=== PATIENT | female | born 1940 | race Caucasian/White ===

== ENCOUNTER 2017-07-23 05:36 | Observation (INO) | payer OTHER, MEDICARE ==
[2017-07-23] MEDS ORDERED: LR 1,000 ML IV ONE (06:10)
--- NOTE | 2017-07-23 06:57 | PDANEPAE ---
ANE History of Present Illness 77 year old female presents for sacrocolpopexy (Robotic assisted). ANE Past Medical History - Cardiovascular History Hx Hypertension: No Hx Arrhythmias: No Hx Chest Pain: No Hx Coronary Artery / Peripheral Vascular Disease: No Hx CHF / Valvular Disease: No Hx Palpitations: No - Pulmonary History Hx COPD: No Hx Asthma/Reactive Airway Disease: No Hx Recent Upper Respiratory Infection: No Hx Oxygen in Use at Home: No Hx Sleep Apnea: No Sleep Apnea Screening Result - Last Documented: Negative - Neurologic History Hx Cerebrovascular Accident: No Hx Seizures: No Hx Dementia: No - Endocrine History Hx Diabetes: No Hypothyroid: No Hyperthyroid: No Obesity: no Endocrine History Comment: PREDIABETIC - DIET & EXERCISE - Renal History Hx Renal Disorders: Yes Renal History Comment: BLADDER PROLAPSE - Liver History Hx Hepatic Disorders: Yes Hepatic History Comment: CHOLECYSTECTOMY - Neurological & Psychiatric Hx Hx Neurological and Psychiatric Disorders: No - Cancer History Hx Cancer: No - Congenital Disorder History Hx Congenital Disorders: No - GI History Hx Gastrointestinal Disorders: No - Other Health History Other Health History: STOMACH RASH COMES & GOES - Chronic Pain History Chronic Pain: No - Surgical History Prior Surgeries: EXP LAPAROSCOPY - PAST TUBAL PREG. HYSTERECTOMY. BLADDER REPAIR X2. CHOLECYSTECTOMY. BREAST REDUCTION & ABDOMINOPLASTY ANE Review of Systems Review of systems is: negative Review of Systems: - Exercise capacity Exercise capacity: >=4 METS METS (RN): 4 METS ANE Patient History - Allergies Allergies/Adverse Reactions: codeine Allergy (Verified 06/25/17 10:29) HEADACHE morphine Allergy (Verified 06/25/17 10:29) Swelling/neck,face,throat PROPANOLOL Allergy (Uncoded 03/04/16 12:33) - Home Medications Home medications: home medication list seen and reviewed Home Medications: Cyanocobalamin [Vitamin B12 (*)] 2,500 mcg PO DAILY 06/25/17 [Last Taken ] Estradiol [Estrace Vaginal (*)] 1 gal VG Q3D@21 06/25/17 [Last Taken 07/21/17] Herbals/Supplements -Info Only 1 ea PO DAILY 06/25/17 [Last Taken 2 Weeks Ago ~ 07/09/17] Levoxyl 06/25/17 [Last Taken 07/22/17] - NPO status NPO Since - Liquids (Date): 07/23/17 (Clear liquid) NPO Since - Liquids (Time): 05:00 NPO Since - Solids (Date): 07/22/17 NPO Since - Solids (Time): 01:30 - Anes Hx Anes Hx: slow to awaken from anesthesia - Smoking Hx Smoking Status: Never smoked Marijuana use: No - Alcohol Use Alcohol Use: None - Family Anes Hx Family Anes Hx: neg - N/A Family Hx Anesthesia Complications: NEG ANE Labs/Vital Signs - Vital Signs Vital Signs: reviewed preoperatively; see RN documention for details Blood Pressure: 139/77 Heart Rate: 63 Respiratory Rate: 14 O2 Sat (%): 97 Height: 157.48 cm Weight: 63.503 kg ANE Physical Exam - Airway Neck exam: FROM Mallampati Score: Class 2 Mouth exam: normal dental/mouth exam - Pulmonary Pulmonary: no respiratory distress - Cardiovascular Cardiovascular: regular rate and rhythym - ASA Status ASA Status: II ANE Anesthesia Plan Anesthesia Plan: general endotracheal anesthesia Total IV Anesthesia: No
[2017-07-23] MEDS ORDERED: BUPIVACAINE/EPI 0.5% 30 ML SDV ONE (07:01)
[2017-07-23] MEDS ORDERED: MIDAZOLAM 2 MG/2 ML VIAL IVP ONE (07:11)
--- NOTE | 2017-07-23 07:11 | PDHPUP ---
History & Physical Update H&P update statement: This history and physical update is based on an assessment of the patient which was completed after admission or registration (within 24 hours), but prior to the surgery/procedure. H&P update: H&P reviewed & patient examined, no change in patient's condition since H&P completed
[2017-07-23] MEDS ORDERED: ceFAZolin 2 GM/SWFI 2 GM/20 ML SYR IVP ONE (07:13)
[2017-07-23] MEDS ORDERED: ROCURONIUM 50 MG/5 ML VIAL ONE ×2 (07:15→08:17)
[2017-07-23] MEDS ORDERED: PROPOFOL 200 MG/20 ML VIAL ONE (07:15)
[2017-07-23] MEDS ORDERED: fentaNYL 100 MCG/2 ML INJ ONE (07:15)
[2017-07-23] MEDS ORDERED: LIDOCAINE 2% 5 ML SDV ONE (07:15)
[2017-07-23] MEDS ORDERED: ceFAZolin 2 GM/SWFI 20 ML SYR IVP ONE (07:16)
[2017-07-23] MEDS ORDERED: MIDAZOLAM 2 MG/2 ML VIAL ONE (07:16)
[2017-07-23] MEDS ORDERED: PHENYLEPHRINE HCL 100 MCG/ML SYR ONE (07:42)
[2017-07-23] MEDS ORDERED: ONDANSETRON 4 MG/2 ML VIAL ONE (07:44)
[2017-07-23] MEDS ORDERED: DEXAMETHASONE 4 MG/ML VIAL ONE (07:44)
[2017-07-23] MEDS ORDERED: HYDROCODONE/APAP 5/325 TAB PO PRN ×2 (08:14→10:14)
[2017-07-23] MEDS ORDERED: NALOXONE HCL 0.4 MG/ML INJ IVP PRN (08:14)
[2017-07-23] MEDS ORDERED: ONDANSETRON 4 MG/2 ML VIAL IVP PRN ×2 (08:14→10:14)
[2017-07-23] MEDS ORDERED: PHENYLEPHRINE HCL 100 MCG/ML SYR IVP PRN (08:14)
[2017-07-23] MEDS ORDERED: HYDROmorphONE/DILAUDID 2 MG/ML INJ IVP PRN ×2 (08:14→10:14)
[2017-07-23] MEDS ORDERED: fentaNYL 100 MCG/2 ML INJ IVP PRN (08:14)
[2017-07-23] MEDS ORDERED: LR 500 ML IV PRN (08:14)
[2017-07-23] MEDS ORDERED: epHEDrine SULFATE 10 MG/ML SYR IVP PRN (08:14)
[2017-07-23] MEDS ORDERED: SUGAMMADEX SODIUM 200 MG/2 ML VIAL IVP ONE (09:15)
[2017-07-23] MEDS ORDERED: KETOROLAC 30 MG/1 ML SDV ONE (09:36)
[2017-07-23] MEDS ORDERED: PROMETHAZINE HCL 25 MG/ML INJ IVP PRN (10:14)
--- NOTE | 2017-07-23 10:14 | POSTOPPROG ---
Post Op Note Date of Operation: 07/23/17 Surgeon: Dimitrios Wells Commercial Glazier: Salma Iniguez Anesthesia: GET(General Endotracheal) Pre-op Diagnosis: vaginal prolapse Post-op Diagnosis: same Procedure: robotic sacrocolpopexy, BSO, TOT sling, cysto Findings: ureters function at end of case Inf/Abcess present in the surg proc area at time of surgery?: No EBL: Minimal Complications: None
[2017-07-23] MEDS ORDERED: LR 1,000 ML IV SCH (10:30)
[2017-07-23] MEDS ORDERED: HYDROmorphONE/DILAUDID 2 MG/ML INJ ONE (10:43)
--- NOTE | 2017-07-23 14:01 | POSTANESTH ---
Post Anesthetic Evaluation Cardiovascular Status: Normal, Stable, Similar to Pre-Op Cond Respiratory Status: Normal, Stable, Similar to Pre-op Cond. Level of Consciousness/Mental Status: Can Participate in Eval, Alert and Oriented Pain Control: Adequate, Prn Tx Ordered Nausea/Vomiting Control: Adequate, Prn Tx Ordered Complications Possibly Related to Anesthesia: None Noted
--- NOTE | 2017-07-23 15:15 | GOP ---
[f rep st] OPERATIVE REPORT DATE OF OPERATION: 07/23/2017 SURGEON: Dimitrios Wells MD DISPATCHER SERVICE: Salma Iniguez CFA. ANESTHESIA: General. PREOPERATIVE DIAGNOSIS: 1. Complete vaginal prolapse. 2. Stress urinary incontinence. POSTOPERATIVE DIAGNOSIS: 1. Complete vaginal prolapse. 2. Stress urinary incontinence. 3. Pelvic adhesions. 4. Right ovarian cyst. PROCEDURE PERFORMED: 1. Robotic-assisted laparoscopic sacrocolpopexy with mesh. 2. Repair of cystocele and rectocele. 3. Left ureterolysis. 4. Bilateral salpingo-oophorectomy. 5. Transobturator sling. 6. Perineorrhaphy. 7. Cystoscopy. FINDINGS: SPECIMENS: Bilateral tubes and ovaries. ESTIMATED BLOOD LOSS: Scant. DESCRIPTION OF PROCEDURE: Patient was taken to the operating room. She was identified. General ane sthesia was administered and found to be adequate. She was placed in the lithotomy position and prep ared and draped in normal sterile fashion. A Reynolds catheter was placed in her bladder. A 1 cm infraumbilical incision was made with a scalpel. The Veress needle with the CO2 gas flowing w as advanced into the peritoneal cavity. The abdomen was then insufflated with carbon dioxide gas. T he 12 mm trocar followed by the laparoscope were then inserted. The upper abdomen was unremarkable. She did have fairly significant adhesions in the pelvis distorting the anatomy. Two lateral ports w ere placed on either side under direct visualization. She then was placed in Trendelenburg position, and the da Jake robot docked on the left side. The instruments were then brought into the abdomina l cavity under direct visualization. The bowel adhesions were then taken down sharply. The patient was noted to have an ovarian cyst on t he right and possibly one on the left. As a result, a bilateral salpingo-oophorectomy was performed. The infundibulopelvic vessels were cauterized and transected well anterior to the ureters. The spe cimens were then sent to Pathology. A stent was placed in the vagina. Given the adhesions, a left u reterolysis was required to safely perform the surgery without risk of injuring the ureter. The randal toneum at the pelvic brim was incised. The ureter was gently dissected free and lateralized off the overlying peritoneum down to near the bladder. Once this was accomplished, the bladder was gently di ssected off the anterior vaginal wall down to the level of bladder neck. The rectovaginal space was then entered, and the rectum dissected off the posterior vaginal wall down to the level of the perine al body. Measurements were then obtained, and the mesh trimmed to size. The peritoneum over the sac ral promontory was incised to clear the fat pad off the anterior longitudinal ligament. The mesh was brought into the abdominal cavity. Three sutures of 4-0 Lakes[place]-Ortiz were used to attach the distal pos terior mesh to the perineal body. Two additional rows of Lakeside-Ortiz sutures were placed posteriorly. Three rows were placed anteriorly to suture the mesh down to the bladder neck and laterally to the pa ravaginal tissue. The tension on the sacral arm of the mesh was adjusted to resolve the cystocele an d rectocele without undue tension on the vagina. Two sutures of 2-0 [place]-Ortiz were used to attach the sacral arm of the mesh to the anterior longitudinal ligament below the intervertebral disk space. T he peritoneum was then closed over the entire mesh. The robot was then undocked. The fascia was baldomero sed with 0 Vicryl, skin with 4-0 Monocryl, and surgical adhesive. A midurethral incision was then made with a scalpel. Tunnels were created bilaterally up to the obtu rator internus muscles. Skin incisions were made over the obturator notches. The Halo trocar was pl aced through the left skin incision, redirected around the ischial pubic rami and out through the vag inal incision using a vaginal finger as a guide. The lateral sulci were examined, and no evidence of vaginal injury had occurred. The exact same procedure was performed on the patient's right side. T he sling was then attached to the trocars and removed along the same course. The sling was then adju sted to allow a small midurethral gap. The vaginal epithelium was closed with 2-0 Vicryl, skin with 4-0 Monocryl. Cystoscopy was then performed. Both ureters had vigorous jets of urine. There was no evidence of me sh nor suture within the bladder nor the urethra. No obvious pathology was seen. A transverse incision was then made along the perineal body. The posterior vaginal epithelium was un dermined with the Metzenbaum scissors and incised sagittally. The epithelium was then gently dissect ed off the underlying rectovaginal connective tissue. The connective tissue was plicated with interr upted sutures of 0 Vicryl. The bulbous spongiosis and transverse perineal muscles were then plicated with 0 Vicryl. The excess epithelium was then trimmed and closed with a running 2-0 Vicryl suture. Vaginal packing was then placed. Anesthesia was reversed, and patient taken to the PACU awake, in s table condition. COMPLICATIONS: None. DISPOSITION: Patient stable to PACU. /[id number]/MODL
[2017-07-23] MEDS: KETOROLAC 15 MG/1 ML SDV IVP SCH ×2 (19:23→19:24)
[2017-07-23] MEDS: SIMETHICONE 80 MG TAB CHEW PO SCH ×3 (19:25→22:16)
[2017-07-23] MEDS: DOCUSATE SODIUM 100 MG CAP PO SCH (20:55)
[2017-07-24] MEDS: KETOROLAC 15 MG/1 ML SDV IVP SCH ×2 (01:05→06:44)
[2017-07-24] MEDS: SIMETHICONE 80 MG TAB CHEW PO SCH ×2 (08:40→17:38)
[2017-07-24] MEDS ORDERED: KETOROLAC 15 MG/1 ML SDV IVP ONE ×2 (08:45→15:00)
[2017-07-24] MEDS: DOCUSATE SODIUM 100 MG CAP PO SCH (10:35)
[2017-07-24 17:41] VITALS: BP 120/66; PULSE 66; RESP 16; TEMP 98.1; O2SAT 94
--- NOTE | 2017-07-24 20:05 | GDS ---
[f rep st] DISCHARGE SUMMARY DISCHARGE DIAGNOSES: 1. Vaginal prolapse. 2. Stress urinary incontinence. PROCEDURES: 1. Robotic-assisted laparoscopic sacral colpopexy with mesh. 2. Repair of cystocele and rectocele. 3. Left ureterolysis. 4. Bilateral salpingo-oophorectomy. 5. Transobturator sling. 6. Perineorrhaphy. 7. Cystoscopy. [facility]: The patient suffered from vaginal prolapse and stress urinary incontinence. She wa s taken to the operating room on 07/23/2016, where she underwent the above-mentioned procedures witho ut complications. Her postoperative course was uneventful. Discharged home on postoperative day #1 in good condition. Medications included Gaffney and ibuprofen for pain. She is to follow up in the office. /[id number]/MODL
== END 2017-07-24 20:25 | disposition home or self-care (01) ==
LOC: F3E 05:36 → FOB 11:00
PROVIDERS: ADMIT Obstetrics & Gynecology; ATTEND Obstetrics & Gynecology
DX: N99.3 Prolapse of vaginal vault after hysterectomy (principal); N39.3 Stress incontinence (female) (male); N81.11 Cystocele, midline; N81.6 Rectocele; N73.6 Female pelvic peritoneal adhesions (postinfective); N83.201 Unspecified ovarian cyst, right side; E03.9 Hypothyroidism, unspecified; Z90.710 Acquired absence of both cervix and uterus
CPT/HCPCS: 57250; 57288; 57425; 58661; 58662; C1763; C1771; J0690; J1100; J1170; J1885; J2250; J2370; J2405; J2704; J3010

== ENCOUNTER 2017-08-13 14:25 | Inpatient (IN) | payer OTHER, MEDICARE ==
[2017-08-13] MEDS ORDERED: ONDANSETRON 4 MG/2 ML VIAL IVP ONE (15:07)
[2017-08-13] MEDS ORDERED: HYDROmorphONE/DILAUDID 2 MG/ML INJ IVP ONE (15:07)
[2017-08-13] MEDS ORDERED: NS 1,900 ML IV ONE (15:07)
--- NOTE | 2017-08-13 15:09 | EDPHY ---
H & P Stated Complaint: FEVER, N,V HAD SURGERY ON 07/13/17 Time Seen by Provider: 08/13/17 14:57 HPI/ROS: CHIEF COMPLAINT: Fever, abdominal pain HISTORY OF PRESENT ILLNESS: Patient is a 77-year-old female with a history of cholecystectomy, appendectomy and hysterectomy who underwent surgery for vaginal prolapse and stress incontinence [address] Wells. She had robotic assisted laparoscopic sacral colpopexy with mesh and repair of cystocele and rectocele, bilateral oophorectomy and bladder sling. She states that over the last 3 days she has developed a high fever and abdominal pain and vomiting. No diarrhea. Mild vaginal spotting but she was told to expect this. She also at that she had urinary tract infection 2 days ago and had dysuria and frequency. She took Pyridium without significant improvement. REVIEW OF SYSTEMS: Constitutional: denies: chills, fever, recent illness, recent injury EENTM: denies: blurred vision, double vision, nose congestion Respiratory: denies: cough, shortness of breath Cardiac: denies: chest pain, irregular heart rate, lightheadedness, palpitations Gastrointestinal/Abdominal: See HPI Genitourinary: See HPI Musculoskeletal: denies: joint pain, muscle pain Skin: denies: lesions, rash, jaundice, bruising Neurological: denies: headache, numbness, paresthesia, tingling, dizziness, weakness Hematologic/Lymphatic: denies: blood clots, easy bleeding, easy bruising Immunologic/allergic: denies: HIV/AIDS, transplant EXAM: GENERAL: Well-appearing, well-nourished and in no acute distress. HEAD: Atraumatic, normocephalic. EYES: Pupils equal round and reactive to light, extraocular movements intact, sclera anicteric, conjunctiva are normal. ENT: TMs normal, nares patent, oropharynx clear without exudates. Moist mucous membranes. NECK: Normal range of motion, supple without lymphadenopathy or JVD. LUNGS: Breath sounds clear to auscultation bilaterally and equal. No wheezes rales or rhonchi. HEART: Regular rate and rhythm without murmurs, rubs or gallops. ABDOMEN: Soft, very slight tenderness predominantly on the right side well healing wounds, normoactive bowel sounds. No guarding, no rebound. No masses appreciated. BACK: No CVA tenderness, no spinal tenderness, step-offs or deformities EXTREMITIES: Normal range of motion, no pitting or edema. No clubbing or cyanosis. NEUROLOGICAL: Cranial nerves II through XII grossly intact. Normal speech, normal gait. 5/5 strength, normal movement in all extremities, normal sensation PSYCH: Normal mood, normal affect. SKIN: Warm, dry, normal turgor, no visible rashes or lesions. Source: Patient Exam Limitations: No limitations - Personal History Current Tetanus/Diphtheria Vaccine: Yes Current Tetanus Diphtheria and Acellular Pertussis (TDAP): Yes - Medical/Surgical History Hx Asthma: No Hx Chronic Respiratory Disease: No Hx Diabetes: No Hx Cardiac Disease: No Hx Renal Disease: No Hx Cirrhosis: No Hx Alcoholism: No Hx HIV/AIDS: No Hx Splenectomy or Spleen Trauma: No Other PMH: APPY/CHOLY/HYSTERECTOMY/HYPOTHYROID. BREAST REDUCTION. TUBAL . Vaginal sling, rectocele and cystocele repair - Family History Significant Family History: No pertinent family hx - Social History Smoking Status: Never smoked Alcohol Use: Sober Drug Use: None Constitutional: Initial Vital Signs Temperature (C) 38.6 C H 08/13/17 14:28 Heart Rate 118 H 08/13/17 14:28 Respiratory Rate 16 08/13/17 14:28 Blood Pressure 137/76 H 08/13/17 14:28 O2 Sat (%) 92 08/13/17 14:28 O2 Delivery Mode Nasal Cannula O2 (L/minute) 2 Allergies/Adverse Reactions: morphine Allergy (Unknown, Verified 08/13/17 14:34) Swelling/neck,face,throat codeine Allergy (Verified 08/13/17 14:34) HEADACHE propranolol Allergy (Verified 08/13/17 14:34) Home Medications: Medication Instructions Recorded Cyanocobalamin [Vitamin B12 (*)] 2,500 mcg PO DAILY 06/25/17 Levothyroxine [Synthroid 50 mcg 50 mcg PO DAILY06 06/25/17 (*)] cefTRIAXone 1 GM/DEXTROSE 1 gm IV DAILY bag 08/15/17 [Rocephin 1 gm (Premix)] Medical Decision Making - Diagnostics Imaging: Discussed imaging studies w/ bingo caller Radiologist ED Course/Re-evaluation: The patient was given Benadryl and Solu-Medrol prior to CT because she has an unknown contrast allergy. 6:30 p.m. we discussed the lab results. The patient has UTI and probably early pyelo considering her fever. She is sepsis but not severe sepsis. I spoke with Dr. Merida who will admit the medical service. She has been started on Rocephin. Differential Diagnosis: Partial list of the Differential diagnosis considered include but were not limited to; UTI, pyelonephritis, intra-abdominal abscess and although unlikely based on the history and physical exam, I also considered hemorrhage, obstruction, perforation. Critical Care Time: Critical care time spent by me, Dr. Holly exclusive with this patient was 35 minutes, exclusive of the PA time exclusive of procedures. The organ system that was at risk was renal and I gave antibiotics, assessment, admission to prevent worsening of the patient's condition - Data Points Laboratory Results: Laboratory Results 08/13/17 15:30 08/13/17 15:30 Microbiology Results: MICROBIOLOGY 08/13/17 15:05 Blood Blood Culture - Preliminary Escherichia Coli 08/13/17 15:10 Blood Blood Culture - Preliminary Escherichia Coli 08/13/17 15:10 Blood Blood Panel (PCR) - Final Escherichia Coli 08/13/17 15:30 Unspecified Urine Culture - Final Escherichia Coli Two Crapo Types Medications Given: Discontinued Medications Acetaminophen (Tylenol) 650 mg PO Q4HRS PRN PRN Reason: Pain, Mild/Fever, Can Take PO Stop: 02/09/18 18:38 Last Admin: 08/14/17 05:18 Dose: 650 mg Diphenhydramine HCl (Benadryl Injection) 50 mg IVP EDNOW ONE Stop: 08/13/17 16:14 Last Admin: 08/13/17 16:18 Dose: 50 mg Enoxaparin Sodium (Lovenox) 40 mg SC DAILY [facility] Stop: 02/10/18 08:59 Last Admin: 08/15/17 09:52 Dose: 40 mg Hydromorphone HCl (Dilaudid) 0.5 mg IVP EDNOW ONE Stop: 08/13/17 15:08 Last Admin: 08/13/17 15:43 Dose: 0.5 mg Sodium Chloride (Ns) 1,900 mls @ 3,800 mls/hr 30 ml/kg infuse over 30 min ( 1900 ml) IV EDNOW ONE PRN Reason: Protocol Stop: 08/13/17 15:36 Last Admin: 08/13/17 15:44 Dose: 1,900 mls Ceftriaxone Sodium/Dextrose (Rocephin 1 Gm (Premix)) 50 mls @ 100 mls/hr IV EDNOW ONE Stop: 08/13/17 18:44 Last Admin: 08/13/17 18:00 Dose: 50 mls Sodium Chloride (Ns) 1,000 mls @ 75 mls/hr IV CONT MIKE Stop: 02/09/18 18:44 Last Admin: 08/15/17 01:20 Dose: 1,000 mls Ceftriaxone Sodium/Dextrose (Rocephin 1 Gm (Premix)) 50 mls @ 100 mls/hr IV DAILY MIKE Stop: 09/13/17 08:59 Last Admin: 08/15/17 09:47 Dose: 50 mls Levothyroxine Sodium (Synthroid) 50 mcg PO DAILY06 MIKE Stop: 02/10/18 05:59 Last Admin: 08/15/17 05:29 Dose: 50 mcg Methylprednisolone Sodium Succinate (Solu-Medrol) 125 mg IVP EDNOW ONE Stop: 08/13/17 16:14 Last Admin: 08/13/17 16:18 Dose: 125 mg Ondansetron HCl (Zofran) 4 mg IVP EDNOW ONE Stop: 08/13/17 15:08 Last Admin: 08/13/17 15:43 Dose: 4 mg Vitamin B Complex (Vitamin B12) 2,500 mcg PO DAILY MIKE Stop: 02/10/18 08:59 Last Admin: 08/15/17 09:52 Dose: Not Given Departure - Departure Disposition: [facility] Inpatient Acute Clinical Impression: Pyelonephritis, acute Sepsis Qualifiers: Sepsis type: sepsis due to unspecified organism Qualified Code(s): A41.9 - Sepsis, unspecified organism Condition: Fair
[2017-08-13 15:40] LABS: PLATELET COUNT 258 10^3/uL (150-400)
[2017-08-13 15:50] LABS: INR 1.02 (0.83-1.16); PROTIME(PATIENT) 13.6 SEC (12.0-15.0)
[2017-08-13] MEDS ORDERED: IOPAMIDOL (ISOVUE-300) 100 ML BTL ONE (16:07)
[2017-08-13] MEDS ORDERED: methylPREDNISolone SOD SUCC 125 MG/2 ML VIAL IVP ONE (16:13)
[2017-08-13] MEDS ORDERED: cefTRIAXone 1 GM in STERILE WATER INJ 10 ML IV ONE (17:50)
[2017-08-13] MEDS ORDERED: cefTRIAXone 1 GM/DEXTROSE 1 GM/50 ML BAG IV ONE (18:00)
[2017-08-13] MEDS ORDERED: ONDANSETRON 4 MG/2 ML VIAL IVP PRN (18:39)
[2017-08-13] MEDS ORDERED: ACETAMINOPHEN 325 MG TAB PO PRN (18:39)
[2017-08-13] MEDS ORDERED: ONDANSETRON DISINTEGRATING 4 MG TAB PO PRN (18:39)
--- NOTE | 2017-08-13 18:45 | PDGENHP ---
History and Physical - Chief Complaint Fever - History of Present Illness This is a 77-year-old female with a history of cholecystectomy, appendectomy and hysterectomy who underwent surgery for vaginal prolapse and stress incontinence [address] Wells. She had robotic assisted laparoscopic sacral colpopexy with mesh and repair of cystocele and rectocele, bilateral oophorectomy and bladder sling. She states that over the last 3 days she has developed a high fever and abdominal pain and vomiting. No diarrhea. Mild vaginal spotting but she was told to expect this. She started having urinary sx's 2 days ago and she took Pyridium without significant improvement. Today she presents with fever, tachycardia, malaise and abd discomfort. In the E.D., she was found to have tachycardia, normal BP, and fever. She met Sepsis criteria and was started on Rocephin and IVF hydration. she does not have any cp, SOB, palpitations, leg swelling, SOB, CP, N/v/D. She does no complain of back pain PMHx and Surgical Hx: Hypothyrodisim, APPY/CHOLY/HYSTERECTOMY/HYPOTHYROID. BREAST REDUCTION. TUBAL . Vaginal sling, rectocele and cystocele repair SocHx: no Tobacco or Illicits FmHx: non contributory Data/Labs -CT abd/pelvis: c/w inflammatory thickening of right ureter and bladder c/w UTI -WBC: 14.73 Lactic acid: 1.3 Urine: +nitrate, LE, WBC History Information - Allergies/Home Medication List Allergies/Adverse Reactions: morphine Allergy (Unknown, Verified 08/13/17 14:34) Swelling/neck,face,throat codeine Allergy (Verified 08/13/17 14:34) HEADACHE propranolol Allergy (Verified 08/13/17 14:34) Home Medications: Cyanocobalamin [Vitamin B12 (*)] 2,500 mcg PO DAILY 06/25/17 [Last Taken ] Levothyroxine [Synthroid 50 mcg (*)] 50 mcg PO DAILY06 06/25/17 [Last Taken ] I have personally reviewed and updated: medical history, social history - Social History Smoking Status: Never smoked Alcohol Use: Sober Drug Use: None Review of Systems Review of Systems: ROS: 10pt was reviewed & negative except for what was stated in HPI & below Physical Exam Physical Exam: Temp Pulse Resp BP Pulse Ox 37.3 C 78 16 125/68 H 97 08/13/17 16:00 08/13/17 16:00 08/13/17 16:00 08/13/17 16:00 08/13/17 16:00 Constitutional: no apparent distress, appears nourished Eyes: PERRL, EOMI Ears, Nose, Mouth, Throat: dry mucous membranes Cardiovascular: regular rate and rhythym, edema Respiratory: no respiratory distress, no rales or rhonchi, clear to auscultation Gastrointestinal: normoactive bowel sounds, soft, non-tender abdomen Genitourinary: no bladder fullness Skin: warm Musculoskeletal: other (no cva tenderness), No muscular tenderness Neurologic: AAOx3 Psychiatric: interacting appropriately, not anxious, not encephalopathic Lymph, Heme, Immunologic: No petechiae Lab Data & Imaging Review 08/13/17 15:30 08/13/17 15:30 WBC 14.73 10^3/uL (3.80-9.50) H 08/13/17 15:30 RBC 4.19 10^6/uL (4.18-5.33) 08/13/17 15:30 Hgb 13.0 g/dL (12.6-16.3) 08/13/17 15:30 Hct 38.8 % (38.0-47.0) 08/13/17 15:30 MCV 92.6 fL (81.5-99.8) 08/13/17 15:30 MCH 31.0 pg (27.9-34.1) 08/13/17 15:30 MCHC 33.5 g/dL (32.4-36.7) 08/13/17 15:30 RDW 13.5 % (11.5-15.2) 08/13/17 15:30 Plt Count 258 10^3/uL (150-400) 08/13/17 15:30 MPV 10.4 fL (8.7-11.7) 08/13/17 15:30 Neut % (Auto) 82.0 % (39.3-74.2) H 08/13/17 15:30 Lymph % (Auto) 7.1 % (15.0-45.0) L 08/13/17 15:30 [place] % (Auto) 9.2 % (4.5-13.0) 08/13/17 15:30 Eos % (Auto) 0.3 % (0.6-7.6) L 08/13/17 15:30 Baso % (Auto) 0.7 % (0.3-1.7) 08/13/17 15:30 Nucleat RBC Rel Count 0.0 % (0.0-0.2) 08/13/17 15:30 Absolute Neuts (auto) 12.07 10^3/uL (1.70-6.50) H 08/13/17 15:30 Absolute Lymphs (auto) 1.04 10^3/uL (1.00-3.00) 08/13/17 15:30 Absolute Monos (auto) 1.36 10^3/uL (0.30-0.80) H 08/13/17 15:30 Absolute Eos (auto) 0.04 10^3/uL (0.03-0.40) 08/13/17 15:30 Absolute Basos (auto) 0.11 10^3/uL (0.02-0.10) H 08/13/17 15:30 Absolute Nucleated RBC 0.00 10^3/uL (0-0.01) 08/13/17 15:30 Immature Gran % 0.7 % (0.0-1.1) 08/13/17 15:30 Immature Gran # 0.11 10^3/uL (0.00-0.10) H 08/13/17 15:30 PT 13.6 SEC (12.0-15.0) 08/13/17 15:30 INR 1.02 (0.83-1.16) 08/13/17 15:30 APTT 27.9 SEC (23.0-38.0) 08/13/17 15:30 VBG Lactic Acid 1.3 mmol/L (0.7-2.1) 08/13/17 15:30 Sodium 138 mEq/L (135-145) 08/13/17 15:30 Potassium 4.0 mEq/L (3.5-5.2) 08/13/17 15:30 Chloride 103 mEq/L (97-110) 08/13/17 15:30 Carbon Dioxide 23 mEq/l (22-31) 08/13/17 15:30 Anion Gap 12 mEq/L (8-16) 08/13/17 15:30 BUN 15 mg/dL (7-23) 08/13/17 15:30 Creatinine 0.8 mg/dL (0.6-1.0) 08/13/17 15:30 Estimated GFR > 60 08/13/17 15:30 Glucose 117 mg/dL (70-100) H 08/13/17 15:30 Calcium 9.0 mg/dL (8.5-10.4) 08/13/17 15:30 Total Bilirubin 1.4 mg/dL (0.1-1.4) 08/13/17 15:30 Conjugated Bilirubin 0.6 mg/dL (0.0-0.5) H 08/13/17 15:30 Unconjugated Bilirubin 0.8 mg/dL (0.0-1.1) 08/13/17 15:30 AST 73 IU/L (14-46) H 08/13/17 15:30 ALT 66 IU/L (9-52) H 08/13/17 15:30 Alkaline Phosphatase 81 IU/L (38-126) 08/13/17 15:30 Total Protein 6.5 g/dL (6.3-8.2) 08/13/17 15:30 Albumin 3.7 g/dL (3.5-5.0) 08/13/17 15:30 Lipase 22 IU/L (23-300) L 08/13/17 15:30 Urine Color YELLOW 08/13/17 15:30 Urine Appearance TURBID 08/13/17 15:30 Urine pH 5.0 (5.0-7.5) 08/13/17 15:30 Ur Specific Marissa 1.012 (1.002-1.030) 08/13/17 15:30 Urine Protein 1+ (NEGATIVE) H 08/13/17 15:30 Urine Ketones NEGATIVE (NEGATIVE) 08/13/17 15:30 Urine Blood 2+ (NEGATIVE) H 08/13/17 15:30 Urine Nitrate POSITIVE (NEGATIVE) H 08/13/17 15:30 Urine Bilirubin NEGATIVE (NEGATIVE) 08/13/17 15:30 Urine Urobilinogen NEGATIVE EU (0.2-1.0) 08/13/17 15:30 Ur Leukocyte Esterase 3+ (NEGATIVE) H 08/13/17 15:30 Urine RBC 25-50 /hpf (0-3) H 08/13/17 15:30 Urine WBC 50-182 /hpf (0-3) H 08/13/17 15:30 Ur Epithelial Cells NONE SEEN /lpf (NONE-1+) 08/13/17 15:30 Urine Bacteria 2+ /hpf (NONE SEEN) H 08/13/17 15:30 Urine Glucose NEGATIVE (NEGATIVE) 08/13/17 15:30 Assessment & Plan Assessment: #Pyelonephritis, acute (Acute) #Sepsis (Acute) (Leukocytosis, Fever, Tachycardia, source of infection Urine) #Tachycardia #Dehydration #Fever Plan: Admission inpatient cont Rocephin Cont IVF, although at a decreased dose normal serum lactate noted await BCx and UCx. symptom control Lovenox for DVT proph cont appropriate home meds Full code, confirmed at bedside total critical care time on this patient with fever, tachycardia, dehydration, and sepsis is 60 minutes
[2017-08-13] MEDS: NS 1,000 ML IV SCH (20:29)
[2017-08-14] MEDS: LEVOTHYROXINE 50 MCG TAB PO SCH (05:19)
[2017-08-14 05:52] LABS: PLATELET COUNT 231 10^3/uL (150-400)
--- NOTE | 2017-08-14 08:39 | HOSPPROG ---
Hospitalist Progress Note Assessment/Plan: #Sepsis: due to pyelonephritis, E coli bacteremia #E Coli bacteremia: urinary source. IV CTX. Repeat bld cultures tomorrow. Ct showed inflammed right ureter. Awaiting sensitivities #Leukocytosis: up today, cont abx #Mild hepatitis: due to acute illness #Hypothyroidism: LT4 #Bradycardia: HR 40-50s. Prior EKG in 60s. No symptoms. EKG pending #Diet: regular #DVT ppx: Lovenox #Disp: cont inpatient admission for IV abx, fluids Subjective: feeling less flank and suprapubic pain Objective: Vital Signs Temp Pulse Resp BP Pulse Ox 36.5 C 45 L 16 122/63 H 95 08/14/17 08:07 08/14/17 08:07 08/14/17 08:07 08/14/17 08:07 08/14/17 08:07 Laboratory Results 08/14/17 04:19 08/14/17 04:19 08/13/17 08/14/17 08/15/17 05:59 05:59 05:59 Intake Total 2967 Balance 2967 PT 13.6 SEC (12.0-15.0) 08/13/17 15:30 INR 1.02 (0.83-1.16) 08/13/17 15:30 - Physical Exam Constitutional: other (pale) Eyes: PERRL Ears, Nose, Mouth, Throat: dry mucous membranes Cardiovascular: bradycardia Respiratory: no respiratory distress, no rales or rhonchi Gastrointestinal: normoactive bowel sounds, soft, non-tender abdomen Genitourinary: no bladder fullness, other (mild right CVA TTP) Skin: warm Musculoskeletal: full muscle strength Neurologic: AAOx3, CN II-XII Intact Psychiatric: interacting appropriately ICD10 Worksheet Patient Problems: Problems Problem Status Onset Pyelonephritis, acute Acute Sepsis Acute Genuine stress incontinence, female Acute Lateral cystocele Acute Rectocele Acute
[2017-08-14] MEDS ORDERED: cefTRIAXone 1 GM in STERILE WATER INJ 10 ML IV SCH (09:00)
[2017-08-14] MEDS: ENOXAPARIN 40 MG/0.4 ML SYR SC SCH (10:55)
[2017-08-14] MEDS: CYANO/VITAMIN B12 1000 MCG TAB PO SCH (10:58)
[2017-08-14] MEDS: NS 1,000 ML IV SCH (10:58)
--- NOTE | 2017-08-14 12:07 | PDMN ---
Medical Necessity Medical necessity: est los>2mn for acute pyelonephritis, sepsis w/fever, tachycardia, and leukocytosis, with urinary sourcd, and dehydration; admit for IV abx, IVF, follow cx's; per order and H&P 08/13/17
--- NOTE | 2017-08-14 12:28 | ASMTCMCOM ---
CM Note CM Note Notes: Pt admitted for pyelonephritis and bacteremia. She recently had surgery to treat vaginal prolapse and stress incontinence. Pt lives at home w/. PT ordered and awaiting recommendation. Date Signed: 08/14/2017 12:28 PM Electronically Signed By:Kendra Villegas RN
--- NOTE | 2017-08-14 12:48 | CPEKG ---
Heart Rate: 49 RR Interval: 1224 P-R Interval: 168 QRSD Interval: 104 QT Interval: 492 QTC Interval: 445 P [place]: 46 QRS [place]: 27 T Wave [place]: 45 EKG Severity - BORDERLINE ECG - EKG Impression: SINUS BRADYCARDIA EKG Impression: NONSPECIFIC ST_T WAVE ABNORMAILITES Electronically Signed By: Ganga Valencia 19-Aug-2017 11:46:35
[2017-08-14 19:41] VITALS: RESP 16
[2017-08-15] MEDS: NS 1,000 ML IV SCH (01:20)
[2017-08-15] MEDS: LEVOTHYROXINE 50 MCG TAB PO SCH (05:29)
--- NOTE | 2017-08-15 08:47 | HOSPPROG ---
Hospitalist Progress Note Assessment/Plan: #Sepsis: due to pyelonephritis, E coli bacteremia #E Coli bacteremia: suspect due to instrumentation with scarocolpoplexy 07/23. IV CTX. Repeat blood cultures today #Leukocytosis: up today, cont abx #Mild hepatitis: due to acute illness #Hypothyroidism: LT4 #Bradycardia: HR 40-50s. Prior EKG in 60s. No symptoms. EKG pending #Diet: regular #DVT ppx: Lovenox #Disp: DC today on IV CTX since LQ-allergy Subjective: feeling better Objective: Vital Signs Temp Pulse Resp BP Pulse Ox 36.8 C 54 L 16 123/68 H 98 08/14/17 19:40 08/15/17 05:41 08/15/17 05:41 08/15/17 05:41 08/15/17 05:41 Laboratory Results 08/15/17 05:03 08/14/17 04:19 08/14/17 08/15/17 08/16/17 05:59 05:59 05:59 Intake Total 2967 2332 Balance 2967 2332 PT 13.6 SEC (12.0-15.0) 08/13/17 15:30 INR 1.02 (0.83-1.16) 08/13/17 15:30 - Physical Exam Constitutional: no apparent distress Eyes: PERRL Ears, Nose, Mouth, Throat: moist mucous membranes Cardiovascular: regular rate and rhythym Respiratory: no respiratory distress Gastrointestinal: normoactive bowel sounds Genitourinary: other (min right CVA TTP) Musculoskeletal: full muscle strength Neurologic: AAOx3 Psychiatric: interacting appropriately ICD10 Worksheet Patient Problems: Problems Problem Status Onset Genuine stress incontinence, female Acute Lateral cystocele Acute Pyelonephritis, acute Acute Rectocele Acute Sepsis Acute
[2017-08-15 08:55] VITALS: PULSE 57
[2017-08-15 09:21] VITALS: O2SAT 92
[2017-08-15] MEDS: ENOXAPARIN 40 MG/0.4 ML SYR SC SCH (09:52)
[2017-08-15] MEDS: CYANO/VITAMIN B12 1000 MCG TAB PO SCH (09:52)
[2017-08-15] MEDS ORDERED: ALTEPLASE 2 MG VIAL IVP PRN (10:49)
--- NOTE | 2017-08-15 10:53 | PDIAF ---
- Diagnosis Diagnosis: e coli bacteremia/pyelonephritis Code Status: Full Code - Medication Management Discharge Medications: Medications to Continue on Transfer Cyanocobalamin [Vitamin B12 (*)] 2,500 mcg PO DAILY 06/25/17 [Last Taken ] Levothyroxine [Synthroid 50 mcg (*)] 50 mcg PO DAILY06 06/25/17 [Last Taken ] Maintenance Tech Antibiotics: ceftriaxone 1gm IV daily Maintenance Tech Antibiotic Stop Date: 08/27/17 Discharge Medications: Refer to the Discharge Home Medication list for PRN reason. PICC Care - Routine: Yes - Orders Services needed: Home Care, Registered Nurse Home Care Face to Face: I certify that this patient was under my care and that I had the required [id number] encounter meeting the encounter requirements on the discharge day. My findings support the fact that the patient is homebound as defined in Home Care Face to Face Continued: CMS Chapter 7 Medicare Benefits Manual 30.1.1 , The condition of the patient is such that there exists a normal inability to leave home and consequently, leaving home would require a considerable and taxing effort. - Labs/Radiology CBC w/diff Date: 08/18/17 (weekly friday) CMP Date: 08/18/17 (weekly friday) Call or Fax Lab and Imaging Results to: Aundrea Cosby MD [facility] at fax [phone] - Follow Up Care Current Providers and Referrals: Ester Hopson MD [Primary Care Provider] - As per Instructions Aundrea Cosby MD [Medical Doctor] - 08/26/17 1:00 pm
--- NOTE | 2017-08-15 12:15 | ASMTCMCOM ---
CM Note CM Note Notes: Pt will need 10 days of IV ABX at DC which is likely later today. PICC line to be placed. [facility] can provide ABX at $25/day for supplies plus $33.78/wk for Ceftriaxone. [facility] will provide RN. Pt's and dtr-in-law will help with ABX. No other needs identified. Final orders to be faxed. Date Signed: 08/15/2017 12:15 PM Electronically Signed By:Charline Horton LCSW
[2017-08-15 12:16] VITALS: BP 116/71; TEMP 98.2
--- NOTE | 2017-08-15 13:55 | PDIAF ---
- Diagnosis Diagnosis: e coli bacteremia/pyelonephritis Code Status: Full Code - Medication Management Discharge Medications: Medications to Continue on Transfer Cyanocobalamin [Vitamin B12 (*)] 2,500 mcg PO DAILY 06/25/17 [Last Taken ] Levothyroxine [Synthroid 50 mcg (*)] 50 mcg PO DAILY06 06/25/17 [Last Taken ] cefTRIAXone 1 GM/DEXTROSE [Rocephin 1 gm (Premix)] 1 gm IV DAILY bag 08/15/17 [ Last Taken Unknown] Certified Adapted Physical Educator Antibiotics: ceftriaxone 1gm IV daily Certified Adapted Physical Educator Antibiotic Stop Date: 08/27/17 Discharge Medications: Refer to the Discharge Home Medication list for PRN reason. PICC Care - Routine: Yes - Orders Services needed: Home Care, Registered Nurse Home Care Face to Face: I certify that this patient was under my care and that I had the required [id number] encounter meeting the encounter requirements on the discharge day. My findings support the fact that the patient is homebound as defined in Home Care Face to Face Continued: CMS Chapter 7 Medicare Benefits Manual 30.1.1 , The condition of the patient is such that there exists a normal inability to leave home and consequently, leaving home would require a considerable and taxing effort. Diet Recommendation: no restrictions on diet Diet Texture: Regular Texture Diet - Labs/Radiology CBC w/diff Date: 08/18/17 (weekly friday) CMP Date: 08/18/17 (weekly friday) Call or Fax Lab and Imaging Results to: Aundrea Cosby MD [facility] at fax [phone] - Follow Up Care Current Providers and Referrals: Ester Hopson MD [Primary Care Provider] - As per Instructions Aundrea Cosby MD [Medical Doctor] - 08/26/17 1:00 pm
[2017-08-15] MEDS ORDERED: LIDOCAINE 1% 300 MG/30 ML SDV ONE (14:19)
--- NOTE | 2017-08-15 14:20 | GDS ---
[f rep st] DISCHARGE SUMMARY DISCHARGE DIAGNOSIS: 1. Sepsis. 2. Escherichia bacteremia. 3. Leukocytosis. 4. Mild hepatitis. 5. Hypothyroid. 6. Bradycardia. HISTORY OF PRESENT ILLNESS: A pleasant 77-year-old female with a history of hypothyroidism who under went a robotic assisted laparoscopic sacral colpopexy with mesh and repair of cystocele and rectocele , bilateral oophorectomy and bladder sling by Dr. Wells 3 weeks ago. Over the last 3 days, she deve loped a high fever abdominal pain, vomiting, and severe shakes. She had mild vaginal spotting which she was told was to be expected. She started having urinary symptoms 2 days prior to that and took P yridium without significant improvement. HOSPITAL COURSE: 1. E. coli bacteremia: Positive UA. She does have a mesh with recent sacral colpopexy. However, n o evidence of abscess or nidus for infection on CT. Dr. Cosby with Infectious Disease evaluated pat ient and will plan for IV ceftriaxone as patient has a moderate reaction to Levaquin. Plan for treat ment through 08/27/2017 with weekly CBC, CMP. 2. Leukocytosis, likely secondary to acute infection. White count went from 15 to 19 today. Will c ontinue antibiotics as stated above. No evidence of abscess. 3. Mild hepatitis secondary to acute illness. 4. Hypothyroidism. Levothyroxine. 5. Bradycardia. Heart rates in the 40s to 50s yesterday, high 50s today. She has been asymptomatic . EKG shows normal sinus bradycardia. 6. Sepsis, secondary to pyelonephritis and bacteremia. This is resolved. DISPOSITION: Patient is stable for discharge. NEW MEDICATIONS: Ceftriaxone 1 g daily through 08/27/2017. FOLLOWUP: 1. Weekly CBC, CMP. 2. Follow up with Dr. Cosby. /[id number]/MODL
--- NOTE | 2017-08-15 14:40 | GCON ---
[f rep st] CONSULTATION INFECTIOUS DISEASE CONSULTATION DATE OF CONSULTATION: 08/15/2017 REASON FOR CONSULTATION: E coli bacteremia. HISTORY OF PRESENT ILLNESS: 77-year-old woman, whose recent medical history is pertinent for a robotic sacropexy, bilateral salpingo-oophorectomy transobturator sling, left ureterolysis, repair of cystocele and rectocele, and cystoscopy on 07/23/2017. Approximately 1 week after surgery, patient reports developing dysuria and taking Azo for relief. Approximately 3 days prior to admission on 08/13/2017, patient developed daily chills and rigors and then subsequently fever and then developed nausea, vomiting; therefore, she presented to the emergency room for further evaluation. She also had some intermittent discomfort associated with the laparoscopic incisions. Upon presentation to the emergency room, patient was febrile and tachycardic but was normotensive. Blood and urine cultures were obtained and subsequently grew E coli, only resistant to sulbactam and ampicillin. Patient was initiated on ceftriaxone in the emergency room and has been on since that time. She reports significant improvement in her dysuria, almost resolution, and some mild persistent urgency. Prior to presentation, she had no control over her urine. She reports her chills and fever have resolved. She has no diarrhea, just constipation, and she has a mildly pruritic rash that she has developed on her chest. A CT scan was performed in the emergency room that showed inflammatory thickening of the right ureter and urinary bladder, consistent with urinary tract infection. Renal enhancement was normal. REVIEW OF SYSTEMS: A complete 10-point review of systems was performed and is negative except as mentioned in the HPI. PAST MEDICAL AND SURGICAL HISTORY: Cholecystectomy, appendectomy, hysterectomy , breast reduction. FAMILY HISTORY: Reviewed and noncontributory. SOCIAL HISTORY: Patient moved to [place] 1.5 years ago from [place]. 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 ALLERGIES: She carries allergies to morphine, codeine, propranolol but also possible rash to cephalosporins in the past and developed a bubbling rash to levofloxacin in the past when used to treat pneumonia. PHYSICAL EXAMINATION: VITAL SIGNS: Temperature 36.8, pulse 57, RR16, saturation 92% on room air, blood pressure 116/71. She has been afebrile since 08/13. GENERAL: This is a very pleasant woman, lying in bed. No acute distress. HEENT: Pupils are reactive bilaterally. Evidence of prior cataract surgery. No conjunctival hemorrhages. Oropharynx: Moist mucous membranes. Good dentition. NECK: Supple. CARDIOVASCULAR: Regular rate and rhythm with a faint systolic murmur. CHEST: Clear to auscultation bilaterally. ABDOMEN: Soft, nontender. Bowel sounds are present. Several of the incisions used to perform robotic procedure are almost completely healed. : No Reynolds is in place. EXTREMITIES: No clubbing, cyanosis, or edema. PIV in the left forearm with C/D/I. SKIN: She has a very minimal maculopapular eruption on her chest. No other areas of rash. LABORATORY: On admission, white count was 14. Following day, her white count was 15, today is 19,000. Hematocrit 34. Creatinine of 0.8. Glucose 166. AST 73, ALT 66. Blood cultures as per HPI. CT per HPI. ASSESSMENT AND PLAN: This is a 77-year-old woman with urinary tract infection, likely pyelonephritis, complicated by Escherichia coli bacteremia with a significant rash to fluoroquinolones in the past. Patient has improved since admission on ceftriaxone. Increasing white blood cell count likely result of an evolving appropriate response to infection, not worsening. RECOMMENDATIONS: 1. We will place a PICC line. Risks and benefits of PICC line placement were discussed with the patient and her [id number]-au-wau and . 2. Continue ceftriaxone to complete a 2-week course of IV therapy. 3. We will see patient in followup at the end of therapy. We will obtain labs once while she is on therapy to monitor. In light of mesh that was placed during recent surgery, blood cultures were repeated today, and we will continue to monitor as an outpatient. Time was 70 minutes, with greater than 50% of time spent with education and counseling of the patient and her family regarding IV antibiotic therapy for E coli bacteremia, risks, and benefits. In addition, coordination of care with Primary Service and Case Management. /[id number]/MODL JOSE
--- NOTE | 2017-08-15 15:04 | ASMTCMCOM ---
CM Note CM Note Notes: Pt changed her mind about getting IV ABX at home and instead wants to go to [facility] so that she would have a daily reason to get out of the house. She is set up with a daily appt at [facility] until 08/27. [facility] and [facility] alerted to change of plans. Date Signed: 08/15/2017 03:04 PM Electronically Signed By:Charline Horton LCSW
--- NOTE | 2017-08-15 15:30 | PDRADPN ---
Radiology Procedure Note Date of Procedure: 08/15/17 Radiologist: Rahul Lobato Anesthesia: Local (Specify) Pre-op Diagnosis: venous access needed Post-op Diagnosis: same Indication: venous access Finding(s): tip of RUE PICC at cavoatrial junction Inf/Abcess present in the surg proc area at time of surgery?: No EBL: Minimal Complications: none
== END 2017-08-15 15:59 | disposition home or self-care (01) | DRG 872 ==
LOC: OBSVTOIN 18:33 → F1N 20:10
PROVIDERS: ADMIT Family Medicine; ATTEND Internal Medicine
DX: A41.51 Sepsis due to Escherichia coli [E. coli] (principal); N16 Renal tubulo-interstitial disorders in diseases classified elsewhere; E03.9 Hypothyroidism, unspecified; R00.1 Bradycardia, unspecified
CPT/HCPCS: 96365; 97161-GP; C1751; G8978-GP-CI; G8979-GP-CI; G8980-GP-CI; G8981-GP-CI; J0696; J1170; J1200; J1650; J2405; J2930; Q9967

== ENCOUNTER → 2017-12-01 | Outpatient (CLI) | payer OTHER, MEDICARE | LOC: BMCIMAGING 12:09 | PROVIDERS: ATTEND Internal Medicine | DX: K59.00 Constipation, unspecified (principal); R11.0 Nausea ==

== ENCOUNTER 2018-01-24 11:54 | Observation (INO) | payer OTHER, MEDICARE ==
--- NOTE | 2018-01-24 12:11 | EDPHY ---
H & P Stated Complaint: NAUSEA PAIN/HEAVY FEELING IN BACK OF HEAD Time Seen by Provider: 01/24/18 12:10 - Personal History Current Tetanus Diphtheria and Acellular Pertussis (TDAP): Yes - Medical/Surgical History Hx Asthma: No Hx Chronic Respiratory Disease: No Hx Diabetes: No Hx Cardiac Disease: No Hx Renal Disease: No Hx Cirrhosis: No Hx Alcoholism: No Hx HIV/AIDS: No Hx Splenectomy or Spleen Trauma: No Other PMH: APPY/CHOLY/HYSTERECTOMY/HYPOTHYROID. BREAST REDUCTION. TUBAL . Vaginal sling, rectocele and cystocele repair - Social History Smoking Status: Never smoked Constitutional: Initial Vital Signs Temperature (C) 37.3 C 01/24/18 12:00 Heart Rate 99 01/24/18 12:00 Respiratory Rate 18 01/24/18 12:00 Blood Pressure 130/88 H 01/24/18 12:00 O2 Sat (%) 93 01/24/18 12:00 O2 Delivery Mode Room Air Allergies/Adverse Reactions: morphine Allergy (Unknown, Verified 01/24/18 11:58) Swelling/neck,face,throat codeine Allergy (Verified 01/24/18 11:58) HEADACHE propranolol Allergy (Verified 01/24/18 11:58) Home Medications: Medication Instructions Recorded Luvoxyl 01/24/18 Medical Decision Making - Diagnostics Imaging Results: Imaging Impressions Chest X-Ray 01/24/18 12:21 Impression: Mild peribronchial thickening suggesting airways disease/bronchitis. Head CT 01/24/18 12:21 Impression: 1. No acute intracranial findings. 2. Diffuse cerebral atrophy with periventricular and subcortical low attenuation consistent with chronic microvascular ischemic gliosis. Findings discussed with Sal Chapa MD 01/24/2018 at 13:47. Head CTA 01/24/18 12:21 Impression: 1. No acute vascular findings. 2. Degenerative change of the cervical spine. 3. Additional findings as above. Symptomatic Carotid Endarterectomy Trial (NASCET) criteria. Findings discussed with Sal Chapa MD, 01/24/2018 at 13:47. Neck CTA 01/24/18 12:21 Impression: 1. No acute vascular findings. 2. Degenerative change of the cervical spine. 3. Additional findings as above. Symptomatic Carotid Endarterectomy Trial (NASCET) criteria. Findings discussed with Sal Chapa MD, 01/24/2018 at 13:47. Imaging: Discussed imaging studies w/ bilingual call center representative Radiologist, I viewed and interpreted images myself ED Course/Re-evaluation: CHIEF COMPLAINT: Nausea, headache HISTORY OF PRESENT ILLNESS: The patient is a 77 y/o female with a history of bacteremia after a vaginal sling surgery (2018) complaining of a stiff neck, headache, and nausea onset several days ago. She initially developed a stiff neck associated with bilateral leg pain. She thought that the leg pain was due to exercising too much. The following day she developed a generalized headache associated with extremity shaking, a subjective low grade fever, and nausea. This is the worst headache of her life. She denies vomiting with the nausea. She denies being exposed to anyone with cold-like symptoms. No chest pain, shortness of breath, abdominal pain, urinary or bowel complaints, numbness, paresthesias. REVIEW OF SYSTEMS: A comprehensive 10 system review of systems is otherwise negative aside from elements mentioned in the history of present illness and medical decision making. PHYSICAL EXAM: HR, BP, O2 Sat, RR. Temp noted General Appearance: Alert and appropriate. Head: Atraumatic without scalp tenderness or obvious injury Eyes: Pupils equal, round, reactive to light and accommodation, EOMI, no trauma , no injection. Ears: Clear bilaterally, no perforation, normal landmarks Nose: Atraumatic, no rhinorrhea, clear. Throat: There is no erythema or exudates, no lesions, normal tonsils, mucus membranes moist. Neck: Supple, nontender, no lymphadenopathy. Respiratory: No retractions, no distress, no wheezes, and no accessory muscle use. Lungs are clear to auscultation bilaterally. Cardiovascular: Regular rate and rhythm, 2/6 systolic ejection murmur, no rubs or gallops. Bilateral carotid, radial, dorsalis pedis, and posterior tibial pulses intact. Good capillary refill all extremities. Gastrointestinal: Abdomen is soft, nontender, non-distended, no masses, no rebound, no guarding, no peritoneal signs. Musculoskeletal: Normal active ROM of all extremities, atraumatic. Neurological: Alert, appropriate, and interactive. The patient has normal DTRs and non-focal cranial nerves, motor, sensory, and cerebellar exam. Skin: No rashes, good turgor, no nodules on palpation. Past medical history: Bacteremia, hypothyroid Past surgical history: Appendectomy, cholecystectomy, hysterectomy, breast reduction, vaginal sling, rectocele, cystocele Family history: Denies Social history: and son at bedside, lives in [place], retired DIAGNOSTICS/PROCEDURES/CRITICAL CARE TIME: Head CT w/o contrast: Negative Head CTA: Negative Neck CTA: Negative Chest x-ray: No acute findings DIFFERENTIAL DIAGNOSIS: The differential diagnosis for the patient's headache and fevers included but was not limited to subarachnoid hemorrhage, migraine headache, tension headache and infectious causes such as meningitis (bacterial vs. viral), pharyngitis and sinusitis. MEDICAL DECISION MAKING: The patient is a 77 y/o female with a history of bacteremia after a vaginal sling surgery (2018) presenting with a stiff neck, headache, and nausea onset several days ago. On exam she appears ill and has a 2/6 systolic ejection murmur. I discussed the possibility of having a lumbar puncture if indicated. Labs, head CT without contrast, head CTA, neck CTA, and chest x-ray ordered. 1255: Patient has an elevated WBC of 17.63; her lactate is normal. This patient does not meet sepsis criteria. 1346: I spoke with Dr. Bustos, radiologist, regarding patients imaging findings which are all negative. 1347: Reassessed patient and discussed laboratory and imaging findings. I had a lengthy discussion and reported the need for a lumbar puncture to rule out meningitis. She reports that the has had three prior lumbar punctures associated with a post-spinal tap headache with over twenty hours of nausea and vomiting. She is declining a lumbar puncture at this time. She does have evidence of a UTI and reports that she recently had shingles. 1gm IV Ceftriaxone administered for her UTI. 600mg IV Acyclovir administered for recent shingles outbreak. I have discussed the need for admission with her symptoms and lab findings; she is comfortable with plan for admission. 1403: Consulted with hospitalist service, Dr. Kevin accepts admission of this patient. 1432: I consulted with Dr. Kevin regarding this patient. - Data Points Laboratory Results: Laboratory Results 01/24/18 12:15 01/24/18 12:15 01/24/18 01/24/18 01/24/18 13:25 12:25 12:25 WBC RBC Hgb POC Hgb 15.3 gm/dL gm/dL (12.6-16.3) Hct POC Hct 45 % % (38-47) MCV MCH MCHC RDW Plt Count MPV Neut % (Auto) Lymph % (Auto) Boyle % (Auto) Eos % (Auto) Baso % (Auto) Nucleat RBC Rel Count Absolute Neuts (auto) Absolute Lymphs (auto) Absolute Monos (auto) Absolute Eos (auto) Absolute Basos (auto) Absolute Nucleated RBC Immature Gran % Immature Gran # PT INR APTT VBG Lactic Acid 1.4 mmol/L mmol/L (0.7-2.1) POC Sodium 140 mEq/L mEq/L (135-145) Sodium POC Potassium 4.0 mEq/L mEq/L (3.3-5.0) Potassium POC Chloride 104 mEq/L mEq/L (97-110) Chloride Carbon Dioxide Anion Gap POC BUN 20 mg/dL mg/dL (7-23) BUN Creatinine POC Creatinine 1.0 mg/dL mg/dL (0.6-1.0) Estimated GFR Glucose POC Glucose 117 mg/dL H mg/dL (70-100) Calcium Total Bilirubin Urine Color PALE YELLOW Urine Appearance CLEAR Urine pH 6.0 (5.0-7.5) Ur Specific Williams 1.012 (1.002-1.030) Urine Protein NEGATIVE (NEGATIVE) Urine Ketones NEGATIVE (NEGATIVE) Urine Blood 1+ H (NEGATIVE) Urine Nitrate NEGATIVE (NEGATIVE) Urine Bilirubin NEGATIVE (NEGATIVE) Urine Urobilinogen NEGATIVE EU EU (0.2-1.0) Ur Leukocyte Esterase 3+ H (NEGATIVE) Urine RBC 1-3 /hpf /hpf (0-3) Urine WBC 25-50 /hpf H /hpf (0-3) Ur Epithelial Cells TRACE /lpf /lpf (NONE-1+) Urine Bacteria TRACE /hpf H /hpf (NONE SEEN) Urine Glucose NEGATIVE (NEGATIVE) 01/24/18 01/24/18 01/24/18 12:15 12:15 12:15 WBC 17.63 10^3/uL H 10^3/uL (3.80-9.50) RBC 4.63 10^6/uL 10^6/uL (4.18-5.33) Hgb 14.2 g/dL g/dL (12.6-16.3) POC Hgb Hct 43.0 % % (38.0-47.0) POC Hct MCV 92.9 fL fL (81.5-99.8) MCH 30.7 pg pg (27.9-34.1) MCHC 33.0 g/dL g/dL (32.4-36.7) RDW 13.9 % % (11.5-15.2) Plt Count 228 10^3/uL 10^3/uL (150-400) MPV 10.9 fL fL (8.7-11.7) Neut % (Auto) 89.1 % H % (39.3-74.2) Lymph % (Auto) 7.0 % L % (15.0-45.0) Boyle % (Auto) 2.4 % L % (4.5-13.0) Eos % (Auto) 0.6 % % (0.6-7.6) Baso % (Auto) 0.6 % % (0.3-1.7) Nucleat RBC Rel Count 0.0 % % (0.0-0.2) Absolute Neuts (auto) 15.71 10^3/uL H 10^3/uL (1.70-6.50) Absolute Lymphs (auto) 1.23 10^3/uL 10^3/uL (1.00-3.00) Absolute Monos (auto) 0.42 10^3/uL 10^3/uL (0.30-0.80) Absolute Eos (auto) 0.11 10^3/uL 10^3/uL (0.03-0.40) Absolute Basos (auto) 0.10 10^3/uL 10^3/uL (0.02-0.10) Absolute Nucleated RBC 0.00 10^3/uL 10^3/uL (0-0.01) Immature Gran % 0.3 % % (0.0-1.1) Immature Gran # 0.06 10^3/uL 10^3/uL (0.00-0.10) PT 12.8 SEC SEC (12.0-15.0) INR 0.94 (0.83-1.16) APTT 26.4 SEC SEC (23.0-38.0) VBG Lactic Acid POC Sodium Sodium 138 mEq/L mEq/L (135-145) POC Potassium Potassium 4.2 mEq/L mEq/L (3.3-5.0) POC Chloride Chloride 103 mEq/L mEq/L (97-110) Carbon Dioxide 25 mEq/l mEq/l (22-31) Anion Gap 10 mEq/L mEq/L (8-16) POC BUN BUN 21 mg/dL mg/dL (7-23) Creatinine 0.9 mg/dL mg/dL (0.6-1.0) POC Creatinine Estimated GFR > 60 Glucose 116 mg/dL H mg/dL (70-100) POC Glucose Calcium 10.1 mg/dL mg/dL (8.5-10.4) Total Bilirubin 1.4 mg/dL mg/dL (0.1-1.4) Urine Color Urine Appearance Urine pH Ur Specific Williams Urine Protein Urine Ketones Urine Blood Urine Nitrate Urine Bilirubin Urine Urobilinogen Ur Leukocyte Esterase Urine RBC Urine WBC Ur Epithelial Cells Urine Bacteria Urine Glucose Medications Given: Discontinued Medications Ceftriaxone Sodium/Dextrose (Rocephin 1 Gm (Premix)) 50 mls @ 100 mls/hr IV EDNOW ONE PRN Reason: Protocol Stop: 01/24/18 14:29 Last Admin: 01/24/18 14:14 Dose: 50 mls Point of Care Test Results: Chemistry 01/24/18 12:25 POC Sodium 140 mEq/L mEq/L (135-145) POC Potassium 4.0 mEq/L mEq/L (3.3-5.0) POC Chloride 104 mEq/L mEq/L (97-110) POC BUN 20 mg/dL mg/dL (7-23) POC Creatinine 1.0 mg/dL mg/dL (0.6-1.0) POC Glucose 117 mg/dL H mg/dL (70-100) ISTAT H&H 01/24/18 12:25 POC Hgb 15.3 gm/dL gm/dL (12.6-16.3) POC Hct 45 % % (38-47) Departure - Departure Disposition: [facility] Inpatient Acute Clinical Impression: possible meningitis UTI (urinary tract infection) Qualifiers: Urinary tract infection type: site unspecified Hematuria presence: without hematuria Qualified Code(s): N39.0 - Urinary tract infection, site not specified Shingles Qualifiers: Herpes zoster complications: without complications Qualified Code(s): B02.9 - Zoster without complications Headache Qualifiers: Headache type: unspecified Headache chronicity pattern: acute headache Intractability: not intractable Qualified Code(s): R51 - Headache Condition: Fair Report Scribed for: Sal Chapa Report Scribed by: Nila Maher Date of Report: 01/24/18 Time of Report: 12:12
[2018-01-24 12:30] LABS: PLATELET COUNT 228 10^3/uL (150-400)
[2018-01-24] MEDS ORDERED: IOPAMIDOL (ISOVUE 370) 100 ML BTL IV ONE (12:37)
[2018-01-24 12:39] LABS: INR 0.94 (0.83-1.16); PROTIME(PATIENT) 12.8 SEC (12.0-15.0)
[2018-01-24] MEDS ORDERED: ACYCLOVIR 600 MG in D5W 100 ML IV ONE (14:01)
[2018-01-24] MEDS ORDERED: ACETAMINOPHEN 325 MG TAB PO PRN (16:30)
[2018-01-24] MEDS ORDERED: ONDANSETRON 4 MG/2 ML VIAL IVP PRN (16:30)
[2018-01-24] MEDS ORDERED: ONDANSETRON DISINTEGRATING 4 MG TAB PO PRN (16:30)
--- NOTE | 2018-01-24 16:48 | ASMTCASEMG ---
Living Arrangements What is your living Answers: With Spouse arrangement? Who do you live with? Type Of Residence What kind of residence do Answers: Apartment you live in? Discharge Plan Comments Coordination Status Comments Notes: Patient is a 77yo female who was admitted for acute pyelonephritis, sepsis, UTI, shingles, headache, genuine stress incontinence. rectocele. No therapies have been ordered at this time. D/C plan TBD. CM will follow. Date Signed: 01/24/2018 04:47 PM Electronically Signed By:Marielle Núñez LCSW
--- NOTE | 2018-01-24 17:22 | GHP ---
DATE OF ADMISSION: 01/24/2018 The patient is a pleasant 77-year-old female with a history of hypothyroidism, bladder surgery with s ubsequent admission for sepsis of a urinary source this spring, who presents with a headache. She gao s reported a headache and stiff neck. She has had 3 lumbar punctures in the past for reasons evolvin g around some vomiting when she lived in [place] and refused lumbar puncture in the emergency d royce. When I speak with her, she notes she may have slept funny on her pillow last night. She said her hea d felt like a block of cement. She had some changes in her urinary stream, but it is not clear has d ysuria. She also says she felt a little bit like she did when she had sepsis previously, although sometimes s he has fevers and she denies subjective fevers and she was afebrile in the emergency department today . No cough, sputum, shortness of breath. No diarrhea or abdominal pain. During our interview, the patient was alert, cogent, conversant with no evidence of encephalopathy. REVIEW OF SYSTEMS: Complete 10-point review of systems conducted, negative except as noted in the HP I. PAST MEDICAL HISTORY: 1. She had rectocele, cystocele and bladder surgery in June of this year. 2. Episodes of vomiting. 3. Hypothyroidism. 4. Breast reduction. 5. Tubal . SOCIAL HISTORY: She is originally from [place], [place]. No tobacco. No drugs. Has moderate alcohol but sounds like she does not particularly tolerate it well. FAMILY HISTORY: Father was an alcoholic. ALLERGIES: Morphine, codeine, propranolol. HOME MEDICATIONS: Levothyroxine. PHYSICAL EXAMINATION: VITAL SIGNS: Temp 37.3, blood pressure 130/88, pulse 70, 99 on presentation, breathing 18 times a minute, 93% on room air. GENERAL: Conversant. No acute distress. HEENT: Scl erae anicteric. Oropharynx clear. Mucous membranes moist. NECK: Supple without lymphadenopathy or JVD. LUNGS: Clear to auscultation bilaterally. HEART: S1, S2 without tachycardia. ABDOMEN: Sof t, nontender. There is no suprapubic tenderness. LOWER EXTREMITIES: Without edema. Calves nontend er. SKIN: Without rash. NEUROLOGIC: Nonfocal. When I walked into the room, the patient was turni ng her head. She was able to touch her chin to her chest without meningeal signs. She is alert. LABS: Sodium 140, potassium 4.0, chloride 104, bicarb not tested, BUN 20, creatinine 1.0, glucose 11 7. Urine is yellow, 25-50 white cells; she had 50-180 white cells during a previous admission for se psis of urinary source. Her lactate is 1.4 which is normal value. Coags are normal. White count is 17, which is high, although she says it tends to run to leukocytosis from 14 to 19 during previous s tudies. Hematocrit 43, platelets are 228,000. Chest x-ray interpreted by me shows no acute cardiopulmonary disease. CT of the head shows diffuse c erebral atrophy, otherwise unremarkable. Head and neck CTA: No acute vascular findings. I discussed the case with Dr. Sal Chapa. ASSESSMENT/PLAN: A 77-year-old female presents with headache, stiff neck, possible urinary tract inf ection. 1. Question meningitis. The patient refused LP in the emergency department. She does have a leukoc ytosis and complains of headache and stiff neck. She clearly does not have bacterial meningitis by h er otherwise unremarkable evaluation. When I see the patient, she is moving her neck well and I do n ot believe she has any meningeal signs. It is her right to refuse a lumbar puncture. I think I will not treat empirically on her clinical presentation despite a leukocytosis. She had a recent episode of shingles about 4 months ago. She received acyclovir in the emergency department. I am not going to continue this. 2. The patient has a paucity of urinary symptoms, but does have a few. I think it is reasonable to treat her for urinary tract infection. 3. Headache. It appears to have resolved. Unclear precipitant. 4. Recent shingles. She has a benign skin exam. 5. Hypothyroidism. Continue levothyroxine. DISPOSITION: Observation status. /[id number]/MODL
[2018-01-24] MEDS: NS 1,000 ML IV SCH (18:29)
[2018-01-25] MEDS: NS 1,000 ML IV SCH (02:32)
[2018-01-25 05:24] LABS: PLATELET COUNT 178 10^3/uL (150-400)
[2018-01-25] MEDS ORDERED: LEVOTHYROXINE 50 MCG TAB PO SCH (06:00)
[2018-01-25 07:55] VITALS: BP 116/62
[2018-01-25] MEDS ORDERED: LEVOXYL PO SCH (09:00)
--- NOTE | 2018-01-25 11:03 | ASMTDCNOTE ---
Case Management Discharge Discharge Order Complete? Answers: Yes Patient to Obtain Answers: via Family Medications Transportation Arranged Answers: Family/Friends Discharge Comments Notes: CM met with patient prior to discharge, no CM needs identified and to follow recommendations. Family/ to transport to and support patient at home. CM delivered IM and patient signed for receipt CM available to support if any further needs arise. Date Signed: 01/25/2018 11:02 AM Electronically Signed By:Hayley Emery
--- NOTE | 2018-01-25 11:11 | ASDISCHSUM ---
Discharge Information Plan Status:Home with No Needs Medically Cleared to Leave:01/25/2018 Discharge Date:01/25/2018 10:32 AM CM D/C Disposition:Home, Routine, Self-Care ADT D/C Disposition:Home, Routine, Self-Care Projected Discharge Date:01/25/2018 12:00 AM Transportation at D/C:Family Discharge Delay Reason: Follow-Up Date:01/25/2018 12:00 AM Discharge Slot:1 - 8:01 am - 12:00 noon Final Diagnosis:UTI Placement Information Patient Contact Information Contact Name:MEEK Relationship: Address:[address] [address] Work Phone: City:[place] Alternate Phone: State/Zip Code:[place] [address] Email: Financial Information Financial Class:Medicare Primary Plan Desc:MEDICARE OUTPATIENT Primary Plan Number:[id number] Secondary Plan Desc:[employer]/MDR SUPPLEMENT Secondary Plan Number:[id number] Assessment Information [facility] Initial CM Assessment Living Arrangements What is your living Answers: With Spouse arrangement? Who do you live with? Type Of Residence What kind of residence do Answers: Apartment you live in? Discharge Plan Comments Coordination Status Comments Notes: Patient is a 77yo female who was admitted for acute pyelonephritis, sepsis, UTI, shingles, headache, genuine stress incontinence. rectocele. No therapies have been ordered at this time. D/C plan TBD. CM will follow. Date Signed: 01/24/2018 04:47 PM Electronically Signed By:Marielle Núñez LCSW Case Management Discharge Plan Note Case Management Discharge Discharge Order Complete? Answers: Yes Patient to Obtain Answers: via Family Medications Transportation Arranged Answers: Family/Friends Discharge Comments Notes: CM met with patient prior to discharge, no CM needs identified and to follow recommendations. Family/ to transport to and support patient at home. CM delivered IM and patient signed for receipt CM available to support if any further needs arise. Date Signed: 01/25/2018 11:02 AM Electronically Signed By:Hayley Emery Intervention Information Intervention Type:*IM-Signed Date of Service:01/25/2018 09:19 AM Patient Type:Inpatient Staff Member:Hayley Emery Hours: Discipline: Severity: Comment:IM delivered, signed for receipt, plac ed in back of chart.
--- NOTE | 2018-01-25 11:12 | ASMTLACE ---
RYANNEE Length of stay for Answers: 1 day current admission Acuity / Level of Answers: Yes Care: Did the patient have an inpatient admission? # of Emergency department Answers: 1-2 visits in the last 6 months Score: 5 Date Signed: 01/25/2018 11:12 AM Electronically Signed By:Hayley Emery
--- NOTE | 2018-01-25 15:32 | PDDCSUM ---
Discharge Summary Discharge Summary: Date of Admission: 01/24/2018 Date of Discharge: 01/25/2018 Consultants: none Discharge Diagnoses: 1. Headache 2. Simple cystitis 3. H/o zoster infection 4. Hypothyroidism Brief Hospital Course by Problem: 1. Headache: Exam, history, findings not consistent with meningitis. Patient declined LP. Suspect r/t dehydration as resolved with IVF. 2. Simple cystitis: Paucity of urinary sxs but UA infected. Discharged to complete course of bactrim. 3. H/o zoster: Benign skin exam. 4. Hypothyroid: Home levothyroxine. Medications: Please refer to EMR. Additions this hospitalization include bactrim. Follow Up Plan: 1. PCP clinic visit in 1-2 weeks Physical Exam: Vitals reviewed, stable. Alert and oriented, no focal neurologic deficits. No photophobia. Full neck ROM. Heart regular, lungs clear, abdomen soft, nontender.
== END 2018-01-25 10:32 | disposition home or self-care (01) ==
LOC: OBSVTOIN 14:13 → INTOOBSV 14:13 → F3E 14:42
PROVIDERS: ADMIT Internal Medicine; ATTEND Internal Medicine
DX: R51 Headache (principal); E86.0 Dehydration; N30.00 Acute cystitis without hematuria; E03.9 Hypothyroidism, unspecified
CPT/HCPCS: 70450; 70496; 70498; 71046; G0378; J0133; J0696; Q9967; 82435-PO; 82565-PO; 82947-PO; 84132-PO; 84295-PO; 84520-PO; 85014-PO